=== PATIENT | male | born 1985 | race Caucasian/White ===

== ENCOUNTER 2020-05-09 15:36 | Outpatient (REF) | payer MEDICARE, MEDICAID, SELFPAY ==
--- NOTE | 2020-05-09 15:46 | US_ITS ---
EXAMINATION: US VENOUS ULTRASOUND WITH DOPPLER LOWER EXTREMITY, LEFT CLINICAL INFORMATION: Pain left leg. COMPARISON: None TECHNIQUE: Ultrasound of the deep veins is performed from the hip to the calf with compression sonography and color and pulse Doppler assessment. Spectral analysis with color-flow imaging is performed. FINDINGS: There is normal venous compression and respiratory variation and augmented flow. The visualized common femoral vein, superficial femoral vein, profunda femoral vein, popliteal vein, and the trifurcation region shows no evidence of deep venous thrombosis. There is no significant popliteal fossa cyst. If the patient's symptoms persist, followup ultrasound in 5 days 7 days might be of value to exclude proximal propagation from a non-visualized calf vein. US/US venous duplex LE LT IMPRESSION: No DVT demonstrated in the left lower extremity.
== END 2020-05-09 15:37 | disposition home or self-care (01) ==
LOC: HO.HMGCX 15:36
PROVIDERS: PCP Internal Medicine; Visit Provider Nurse Practitioner Family
DX: M79.605 Pain in left leg (principal)
CPT/HCPCS: 93971

== ENCOUNTER 2021-10-03 10:10 | Outpatient (REF) | payer MEDICARE, MEDICAID, SELFPAY ==
[2021-10-03 11:33] LABS: MANUAL DIFF FLAG NO
[2021-10-03 11:45] LABS: Basophils Percent Auto 0.1 % (0-2); Eosinophils Absolute Auto 0.2 X10*3/uL (0.0-0.4); Eosinophils Percent Auto 2.4 % (0-4); Hematocrit 42.1 % (42.0-52.0); Hemoglobin 13.8 g/dl (14.0-18.0); Imm Gran Abs Auto 0.03 X10*3/uL (0.00-0.03); Imm Gran Pct Auto 0.4 % (0.0-0.4); Lymphocytes Percent Auto 29.6 % (20-40); Mean Corpuscular HGB Conc 32.8 g/dl (31.0-36.0); Mean Corpuscular Hemoglobin 28.6 pg (27.0-33.0); Mean Corpuscular Volume 87.3 fL (80.0-98.0); Mean Platelet Volume 11.3 fL (9.4-12.4); Monocytes Absolute Auto 0.4 X10*3/uL (0.1-1.2); Monocytes Percent Auto 6.3 % (2-11); Neutrophils Absolute Auto 4.1 x10*3/uL (2.0-8.3); Neutrophils Percent Auto 61.2 % (45-73); Platelet Count 236 X10*3/uL (160-400); Red Blood Count 4.82 X10*6/uL (4.60-5.80); White Blood Count 6.8 X10*3/uL (4.8-10.8)
[2021-10-03 12:10] LABS: Alanine Aminotransferase 34 U/L (0-40); Albumin Level 3.9 g/dL (3.5-5.0); Alkaline Phosphatase 64 U/L (39-117); Anion Gap 12 (12-20); Aspartate Amino Transferase 20 U/L (5-37); Bilirubin Total 0.8 mg/dL (0.0-1.0); Blood Urea Nitrogen 12 mg/dL (9-16); Calcium 9.3 mg/dL (8.4-10.2); Carbon Dioxide 27 mmol/L (22-29); Chloride 103 mmol/L (96-108); Cholesterol 241 mg/dL; Estimated Glomerular Filt Rate > 60; Glucose Random 101 mg/dL (60-115); HDL Cholesterol 34 mg/dL; LDL Cholesterol Calculated 176 mg/dl; Potassium 4.2 mmol/L (3.3-5.1); Sodium 138 mmol/L (135-145); Triglycerides 157 mg/dL
[2021-10-03 12:32] LABS: Free T4 (Free Thyroxine) 0.89 ng/dL (0.71-1.85); Thyroid Stimulating Hormone 2.78 uIU/mL (0.32-4.0)
[2021-10-03 15:29] LABS: Folate > 20.0 ng/mL (> or = 4.0)
[2021-10-03 16:07] LABS: Vitamin B12 272 pg/mL (200-900)
== END 2021-10-03 10:11 | disposition home or self-care (01) ==
LOC: HO.HMGCLDS 10:10
PROVIDERS: PCP Internal Medicine; Visit Provider Internal Medicine
DX: R03.0 Elevated blood-pressure reading, without diagnosis of hypertension (principal); E78.00 Pure hypercholesterolemia, unspecified
CPT/HCPCS: 36415; 80053; 80061; 82607; 82746; 84439; 84443; 85025

== ENCOUNTER 2023-08-13 13:05 | Outpatient (AMB) | payer MEDICARE, MEDICAID, SELFPAY ==
[2023-08-13 13:06] VITALS: BP 112/64; PULSE 67; O2SAT 98; BMI 52.6
--- NOTE | 2023-08-13 13:06 | MHC.PC.OV ---
Vital Signs 08/13/23 13:06 Height 6 ft Weight 388 lb BMI 52.6 BP 112/64 Blood Pressure Location Lt brachial Position Sitting Pulse 67 Pulse Source Pulse Oximeter Temp Source Skin Pulse Oximetry (%) 98 Oxygen Delivery Method Room Air Intake Visit Reasons: Annual Exam Intake Note: Patient is here today for a physical. Glass Vial Bending Conveyor Feeder Required: No Allergies No Known Allergies Allergy (Verified 08/13/23 13:07) Tobacco use date assessed: 08/13/23 Dental Screening Dental Screen Date: 08/13/23 Did you have a dental visit in the last 12 months?: Yes Did you have a dental problem in the last 6 months where you did not have access to dental care?: No Was dental information given to patient?: Patient has dentist HPI Annual Exam HPI Details 37-year-old morbidly obese male with impaired glucose tolerance hypercholesterolemia and autism coming in for physical exam. Last seen in July 2022. [facility] Medical History (Updated 08/13/23 @ 13:29 by Alvarez Mena MD) Obesity Hypercholesterolemia Medicare annual wellness visit, initial Ulcerative proctitis Peptic ulcer disease Allergic rhinitis Constipation Vitamin D deficiency Autism Surgical History No pertinent past surgical history Family History (Updated 08/07/22 @ 12:37 by Alvarez Mena MD) Father Medical history unknown Mother No problems noted. Maternal Grandmother No problems noted. Maternal Grandfather Bone cancer Lung cancer Social History Housing: Other Housing Other:: assisted Alcohol intake: never Patient Tobacco Use Status: Never used Tobacco e-Cigarette/Vaping Use: Never Used service: No Current occupational status: disabled Cognitive needs: Yes Hearing needs: No Vision needs: No Questionnaire PHQ-9 Over the last 2 weeks, how often have you been bothered by any of the following problems? 1. Little interest or pleasure in doing things: not at all 2. Feeling down, depressed, or hopeless: not at all 3. Trouble falling or staying asleep, or sleeping too much: not at all 4. Feeling tired or having little energy: not at all 5. Poor appetite or overeating: not at all 6. Feeling bad about yourself - or that you are a failure or have let yourself or your family down: not at all 7. Trouble concentrating on things, such as reading the newspaper or watching television: not at all 8. Moving or speaking so slowly that other people could have noticed. Or the opposite - being so fidgety or restless that you have been moving around a lot more than usual: not at all 9. Thoughts that you would be better off or of hurting yourself in some way: not at all Total score: 0 Depression Screening Interpretation: Negative Depression Screening Done: Yes 05122 - PHQ-9 Billing: Yes Source: Developed by Drs. Bryant Garcia, Wendy Bush, Jeff Edge and colleagues, with an educational juaquin from [employer]. Thrive Questionnaire Date Thrive assessed: 08/07/22 I am a: Patient What is your living situation today?: I have a steady place to live Within the past 12 months, did the food you bought not last and you didn't have the money to get more?: Never true Within the past 12 months, did you worry whether your food would run out before you got money to buy more?: Never true Do you have trouble paying for medicines?: No Do you have trouble getting transportation to medical appointments?: No Do you have trouble paying your heating and electricity bill?: No Do you have trouble taking care of your child, family member or friend?: No Do you have trouble with day-to-day activities such as bathing, preparing meals, shopping, managing finances, etc.?: No Are you currently unemployed and looking for a job?: No Are you interested in more education?: No Please select the resources that you would like help with: None Currently or been in a relationship where the following occur: no concerns reported THRIVE Score: 0 AUDIT C Alcohol Use Questionnaire (AUDIT-C) 1. How often do you have a drink containing alcohol?: Never 3. How often do you have six or more drinks on one occasion?: Never Total Score: 0 YUNI-7 AMB Questionnaire YUNI-7 Date YUNI - 7 assessed: 08/13/23 Feeling nervous, anxious, or on edge: 0 = Not at all Not being able to stop or control worryin = Not at all Worrying too much about different things: 0 = Not at all Trouble relaxin = Not at all Being so restless that it is hard to sit still: 0 = Not at all Becoming easily annoyed or irritable: 0 = Not at all Feeling afraid as if something awful might happen: 0 = Not at all Total YUNI-7 score (0-4 normal; 5-9 mild; 10-14 moderate; 15-21 severe): 0 Source: Developed by Drs. Bryant Garcia, Wendy Bush, Jeff Edge and colleagues, with an educational juaquin from [employer]. Review of Systems Const Denies poor appetite and Denies weakness Eyes Denies no additional complaints ENT Reports Normal hearing present, Denies dizziness, Denies nasal congestion, Denies tinnitus and Denies sore throat Card Denies chest pain, Denies syncope, Denies rapid heart rate and Denies dyspnea Resp Denies cough and Denies dyspnea GI Denies change in stool character, Reports constipation, Denies diarrhea, Denies nausea and Denies vomiting Denies dysuria and Denies urinary frequency Neuro Reports Normal hearing present, Denies confusion, Denies dizziness, Denies syncope and Denies weakness Psych Denies confusion Physical exam (Primary Care) Vital Signs: Last Vital Signs Pulse 67 08/13/23 13:06 BP 112/64 08/13/23 13:06 Pulse Ox 98 08/13/23 13:06 Oxygen Delivery Method Room Air 08/13/23 13:06 BMI result Body Mass Index 52.6 Tobacco/Smoking Status: Tobacco use Status Tobacco use date assessed 08/13/23 08/13/23 13:08 Patient Tobacco Use Status Never used Tobacco 08/13/23 13:08 e-Cigarette/Vaping Use Never Used 08/13/23 13:08 PHQ-9: PHQ-9 Score PHQ-9: Total score 0 08/13/23 13:30 Depression Screening Interpretation: Negative Thrive Assessment: Date of Thrive Assessment Date Thrive assessed 08/07/22 08/13/23 13:08 Currently or been in a relationship where the following occur: no concerns reported Const General: No confusion Orientation/consciousness: No confusion HENMT Head: Yes normocephalic Ears: external ears normal and TM's normal bilaterally Face and sinus: Yes normal facial exam Mouth: moist mucous membranes Throat: Yes tonsils normal Eyes Conjunctivae: conjunctivae normal Pupils: Equal, round and reactive pupils present and Pupil accommodation reflex normal Direct Ophthalmoscopy: normal light reflex Neck Neck: No lymphadenopathy Thyroid: Thyroid normal Chest Chest palpation & inspection: normal inspection of the chest Resp Effort & Inspection: normal respiratory effort and no audible wheezes Auscultation: clear to auscultation bilaterally, no crackles, no wheezes and lung sounds not diminished Cardio Rate: regular rate Rhythm: regular rhythm Peripheral pulses: radial pulses present and dorsalis pedis present GI Palpation (GI): no masses Auscultation: normal bowel sounds and normoactive bowel sounds Rectal Exam - Male: Yes deferred Skin General skin exam: no rashes or lesions noted Rashes: no rashes Neuro General: No confusion Cranial nerves: Yes Equal, round and reactive pupils present and Yes Normal hearing present Cognition (Neuro): normal cognition Gait exam (Neuro): Normal gait present Motor exam (neuro): 5/5 motor strength present throughout Deep tendon reflexes (DTR's): Right brachioradialis reflex intensity grade: 2+, Left brachioradialis reflex intensity grade: 2+, Right patellar reflex intensity grade: 2+ and Left patellar reflex intensity grade: 2+ Extrem General: No edema Assessment and Plan Assessment & Plan (1) Annual physical exam: Code(s): Z00.00 - Encounter for general adult medical examination without abnormal findings (2) Morbid obesity: Code(s): E66.01 - Morbid (severe) obesity due to excess calories Plan: Diet and exercise, congratulations! (3) Impaired glucose tolerance: Code(s): R73.02 - Impaired glucose tolerance (oral) Plan: Decrease the amount of carbohydrate intake, pasta, bread, rice and potatoes are all sugar and that is aside from all the sweet stuff, remember that fruits are good but they are Sweet also. (4) Hypercholesterolemia: Code(s): E78.00 - Pure hypercholesterolemia, unspecified Plan: Avoid fried foods, chicken skin, eggs, butter margarine, pastries and meat. Be it pork or beef they have a lot of cholesterol (5) Autism: Code(s): F84.0 - Autistic disorder Plan: Continue with present medication. Orders: Orders Hemoglobin A1c Today R73.02 - Impaired glucose tolerance (oral) Vitamin B12 and Folate Today R73.02 - Impaired glucose tolerance (oral) Ferritin Today D64.9 - Anemia, unspecified Reticulocyte Count Today D64.9 - Anemia, unspecified Complete Blood Count Auto Diff Today R73.02 - Impaired glucose tolerance (oral) Comprehensive Met. Panel Today R73.02 - Impaired glucose tolerance (oral) Free T4 (Free Thyroxine) Today R73.02 - Impaired glucose tolerance (oral) Thyroid Stimulating Hormone Today R73.02 - Impaired glucose tolerance (oral) Lipid Panel Today E78.00 - Pure hypercholesterolemia, unspecified, R73.02 - Impaired glucose tolerance (oral) IRON PROFILE Today D64.9 - Anemia, unspecified Medications: Changed From loratadine Take daily in morning 90 days 90 tabs 3RF allergy symptoms To loratadine 10 mg orally Take daily in morning PRN; 90 tabs 3RF allergy symptoms 90 days Coding Level of Care Code Est Pt Prev Care [id number]([id number]) Diagnoses Annual physical exam Z00.00 Morbid obesity E66.01 Impaired glucose tolerance R73.02 Hypercholesterolemia E78.00 Autism F84.0
== END 2023-08-13 13:59 | disposition home or self-care (01) ==
PROVIDERS: Visit Provider Internal Medicine
DX: Z00.00 Encounter for general adult medical examination without abnormal findings (principal); E66.01 Morbid (severe) obesity due to excess calories; Z68.43 Body mass index [BMI] 50.0-59.9, adult; R73.02 Impaired glucose tolerance (oral); E78.00 Pure hypercholesterolemia, unspecified; F84.0 Autistic disorder
CPT/HCPCS: 99395

== ENCOUNTER 2023-08-23 11:01 | Outpatient (REF) | payer MEDICARE, MEDICAID, SELFPAY ==
[2023-08-23 13:23] LABS: MANUAL DIFF FLAG NO
[2023-08-23 13:26] LABS: Basophils Percent Auto 0.3 % (0-2); Eosinophils Absolute Auto 0.2 X10*3/uL (0.0-0.4); Eosinophils Percent Auto 2.9 % (0-4); Hematocrit 42.4 % (42.0-52.0); Hemoglobin 14.5 g/dl (14.0-18.0); Imm Gran Abs Auto 0.02 X10*3/uL (0.00-0.03); Imm Gran Pct Auto 0.3 % (0.0-0.4); Lymphocytes Percent Auto 31.1 % (20-40); Mean Corpuscular HGB Conc 34.2 g/dl (31.0-36.0); Mean Corpuscular Hemoglobin 29.3 pg (27.0-33.0); Mean Corpuscular Volume 85.7 fL (80.0-98.0); Mean Platelet Volume 11.1 fL (9.4-12.4); Monocytes Absolute Auto 0.5 X10*3/uL (0.1-1.2); Monocytes Percent Auto 7.4 % (2-11); Neutrophils Absolute Auto 3.7 x10*3/uL (2.0-8.3); Platelet Count 237 X10*3/uL (160-400); Red Blood Count 4.95 X10*6/uL (4.60-5.80); Red Cell Distribution Width 12.1 % (11.0-16.0); Retic HGB Equivalent 33.3 pg (30.0-35.0); Reticulocyte Percent 1.9 % (0.5-1.8); Reticulocytes Absolute 0.092 X10*6/uL (0.026-0.095); White Blood Count 6.5 X10*3/uL (4.8-10.8)
[2023-08-23 13:37] LABS: Estimated Average Glucose 108 mg/dL; Hemoglobin A1c % 5.4 % (<6.0)
[2023-08-23 13:46] LABS: Alanine Aminotransferase 28 U/L (0-40); Albumin Level 3.9 g/dL (3.5-5.0); Alkaline Phosphatase 66 U/L (39-117); Anion Gap 10 (12-20); Aspartate Amino Transferase 22 U/L (5-37); Bilirubin Total 0.7 mg/dL (0.0-1.0); Blood Urea Nitrogen 12 mg/dL (9-16); Calcium 9.1 mg/dL (8.4-10.2); Carbon Dioxide 28 mmol/L (22-29); Chloride 104 mmol/L (96-108); Cholesterol 240 mg/dL (<200); Estimated Glomerular Filt Rate > 60; Glucose Random 91 mg/dL (60-115); HDL Cholesterol 38 mg/dL (>40); Iron 64 mcg/dL (45-160); LDL Cholesterol Calculated 173 mg/dL (<100); Percent Iron Saturation 27 % (15-50); Potassium 4.1 mmol/L (3.3-5.1); Sodium 138 mmol/L (135-145); Total Iron Binding Capacity 233 mcg/dL (228-428); Total Protein 7.5 g/dL (6.5-8.0); Triglycerides 146 mg/dL (<150); Unsaturated Iron Binding 169 ug/dL
[2023-08-23 14:01] LABS: Ferritin 150 ng/mL (20-250); Free T4 (Free Thyroxine) 0.99 ng/dL (0.71-1.85); Thyroid Stimulating Hormone 2.45 uIU/mL (0.32-4.0)
[2023-08-23 14:15] LABS: Folate 15.2 ng/mL (> or = 4.0); Vitamin B12 370 pg/mL (200-900)
== END 2023-08-23 11:02 | disposition home or self-care (01) ==
LOC: HO.HMGCLDS 11:01
PROVIDERS: PCP Internal Medicine; Visit Provider Internal Medicine
DX: R73.02 Impaired glucose tolerance (oral) (principal); D64.9 Anemia, unspecified; E78.00 Pure hypercholesterolemia, unspecified
CPT/HCPCS: 36415; 80053; 80061; 82607; 82728; 82746; 83036; 83540; 84439; 84443; 85025; 85045

== ENCOUNTER 2024-08-18 12:54 | Outpatient (AMB) | payer MEDICARE, MEDICAID, SELFPAY ==
--- NOTE | 2024-08-18 13:01 | MHC.PC.OV ---
Vital Signs 08/18/24 13:02 Height 6 ft Weight 380 lb BMI 51.5 BP 124/68 Blood Pressure Location Lt brachial Position Sitting Pulse 67 Pulse Source Pulse Oximeter Temp 97.1 F Temp Source Temporal Artery Scan Pulse Oximetry (%) 97 Oxygen Delivery Method Room Air Intake Visit Reasons: annual physical Intake Note: Patient is here today for a physical. Risk Adjustment Specialist Required: No Diploma Maker: Present Accompanied by: Mother Allergies No Known Allergies Allergy (Verified 08/18/24 13:01) Medication List - Last Reconciled 08/18/24 by Alvarez Mena MD acetaminophen 650 mg (2 x 325 mg) PO Q4H PRN [Blood Pressure Cuff XL As directed] [blood pressure monitor with Blood Pressure Cuff XL As directed] cholecalciferol (vitamin D3) 25 mcg PO DAILY citalopram 40 mg PO DAILY clotrimazole 1% 1 appl topical BID 90 days dextromethorphan polistirex ER (Delsym 12 hour) 10 mL PO Q12H PRN docusate sodium 100 mg orally 08:00 and 17:00; 90 days flaxseed oil 1,000 mg PO DAILY 90 days hydrocortisone-acetic acid 1-2 % 4 drps otic (ears) QID 7 days hydroxyzine HCl 25 mg PO Q8H PRN 30 days ketoconazole 2% 1 appl topical BID 90 days ketoconazole 2% 1 appl topical 2XW Lactobacillus rhamnosus GG (Culturelle) 1 cap PO DAILY loratadine 10 mg PO DAILY 90 days lorazepam (Ativan) 0.5 mg PO BID PRN lorazepam (Ativan) 1 mg PO TID PRN miconazole nitrate 2% (Zeasorb AF) 1 appl topical BID multivitamin with folic acid 400 mcg (Daily-Rahul (with folic acid)) 1 tab PO QAM naproxen 500 mg PO Q12H PRN nystatin 1 appl topical TID 30 days omega 3-rih-wul-fish oil 300-1,000 mg 1 cap PO BEDTIME polyethylene glycol 3350 17 grams PO DAILY PRN 90 days propranolol 20 mg orally 08:00 and 17:00; 30 days psyllium husk 0.8 grams (2 x 0.4 gram) PO QAM quetiapine (Seroquel) 50 mg PO BEDTIME quetiapine (Seroquel) 100 mg PO BEDTIME quetiapine ER (Seroquel XR) 150 mg PO DAILY Tobacco use date assessed: 08/18/24 Dental Screening Dental Screen Date: 08/18/24 Did you have a dental visit in the last 12 months?: Yes Did you have a dental problem in the last 6 months where you did not have access to dental care?: No Was dental information given to patient?: Patient has dentist [facility] Medical History (Updated 08/18/24 @ 13:18 by Alvarez Mena MD) Anemia Obesity Hypercholesterolemia Medicare annual wellness visit, initial Ulcerative proctitis Peptic ulcer disease Allergic rhinitis Constipation Vitamin D deficiency Autism Surgical History No pertinent past surgical history Family History (Updated 08/18/24 @ 13:07 by SHOLA Daniel) Father Medical history unknown Mother No problems noted. Maternal Grandmother No problems noted. Maternal Grandfather Bone cancer Lung cancer Social History Housing: Other Housing Other:: [facility] Alcohol intake: never Patient Tobacco Use Status: Never used Tobacco e-Cigarette/Vaping Use: Never Used Second Hand Smoke Exposure: No service: No Current occupational status: disabled Cognitive needs: Yes Hearing needs: No Vision needs: No Questionnaire PHQ-9 Over the last 2 weeks, how often have you been bothered by any of the following problems? 1. Little interest or pleasure in doing things: not at all 2. Feeling down, depressed, or hopeless: not at all 3. Trouble falling or staying asleep, or sleeping too much: not at all 4. Feeling tired or having little energy: not at all 5. Poor appetite or overeating: not at all 6. Feeling bad about yourself - or that you are a failure or have let yourself or your family down: not at all 7. Trouble concentrating on things, such as reading the newspaper or watching television: not at all 8. Moving or speaking so slowly that other people could have noticed. Or the opposite - being so fidgety or restless that you have been moving around a lot more than usual: not at all 9. Thoughts that you would be better off or of hurting yourself in some way: not at all Total score: 0 Depression Screening Interpretation: Negative Depression Screening Done: Yes Source: Developed by Drs. Bryant Garcia, Wendy Bush, Jeff Edge and colleagues, with an educational juaquin from [employer]. Thrive Questionnaire Date Thrive assessed: 08/12/24 I am a: Parent/Caregiver What is your living situation today?: I have a steady place to live Within the past 12 months, did the food you bought not last and you didn't have the money to get more?: Never true Within the past 12 months, did you worry whether your food would run out before you got money to buy more?: Never true Do you have trouble paying for medicines?: No Do you have trouble getting transportation to medical appointments?: No Do you have trouble paying your heating and electricity bill?: No Do you have trouble taking care of your child, family member or friend?: No Do you have trouble with day-to-day activities such as bathing, preparing meals, shopping, managing finances, etc.?: No Are you currently unemployed and looking for a job?: No Are you interested in more education?: No Please select the resources that you would like help with: None Currently or been in a relationship where the following occur: No concerns reported THRIVE Score: 0 AUDIT C Alcohol Use Questionnaire (AUDIT-C) 1. How often do you have a drink containing alcohol?: Never Total Score: 0 YUNI-7 AMB Questionnaire YUNI-7 Date YUNI - 7 assessed: 08/18/24 Feeling nervous, anxious, or on edge: 0 = Not at all Not being able to stop or control worryin = Not at all Worrying too much about different things: 0 = Not at all Trouble relaxin = Not at all Being so restless that it is hard to sit still: 0 = Not at all Becoming easily annoyed or irritable: 0 = Not at all Feeling afraid as if something awful might happen: 0 = Not at all Total YUNI-7 score (0-4 normal; 5-9 mild; 10-14 moderate; 15-21 severe): 0 Source: Developed by Wendy Tate Kurt Kroenke and colleagues, with an educational juaquin from [employer]. Review of Systems Const Denies poor appetite and Denies weakness Eyes Denies no additional complaints ENT Reports Normal hearing present, Denies dizziness, Denies nasal congestion, Denies tinnitus and Denies sore throat Card Denies chest pain, Denies syncope, Denies rapid heart rate and Denies dyspnea Resp Denies cough and Denies dyspnea GI Denies change in stool character, Reports constipation, Denies diarrhea, Denies nausea and Denies vomiting Denies dysuria and Denies urinary frequency Neuro Reports Normal hearing present, Denies confusion, Denies dizziness, Denies syncope and Denies weakness Psych Denies confusion Physical exam (Primary Care) Vital Signs: Last Vital Signs Temp 97.1 F 08/18/24 13:02 Pulse 67 08/18/24 13:02 BP 124/68 08/18/24 13:02 Pulse Ox 97 08/18/24 13:02 Oxygen Delivery Method Room Air 08/18/24 13:02 BMI result Body Mass Index 51.5 Tobacco/Smoking Status: Tobacco use Status Tobacco use date assessed 08/18/24 08/18/24 13:08 Patient Tobacco Use Status Never used Tobacco 08/18/24 13:08 e-Cigarette/Vaping Use Never Used 08/18/24 13:08 PHQ-9: PHQ-9 Score PHQ-9: Total score 0 08/18/24 13:08 Depression Screening Interpretation: Negative Thrive Assessment: Date of Thrive Assessment Date Thrive assessed 08/12/24 08/18/24 13:08 Currently or been in a relationship where the following occur: No concerns reported Const General: No confusion Orientation/consciousness: No confusion HENMT Head: Yes normocephalic Ears: external ears normal and TM's normal bilaterally Face and sinus: Yes normal facial exam Mouth: moist mucous membranes Throat: Yes tonsils normal Eyes Conjunctivae: conjunctivae normal Pupils: Equal, round and reactive pupils present and Pupil accommodation reflex normal Direct Ophthalmoscopy: normal light reflex Neck Neck: No lymphadenopathy Thyroid: Thyroid normal Chest Chest palpation & inspection: normal inspection of the chest Resp Effort & Inspection: normal respiratory effort and no audible wheezes Auscultation: clear to auscultation bilaterally, no crackles, no wheezes and lung sounds not diminished Cardio Rate: regular rate Rhythm: regular rhythm Peripheral pulses: radial pulses present and dorsalis pedis present GI Palpation (GI): no masses Auscultation: normal bowel sounds and normoactive bowel sounds Rectal Exam - Male: Yes deferred Skin General skin exam: no rashes or lesions noted Rashes: no rashes Neuro General: No confusion Cranial nerves: Yes Equal, round and reactive pupils present and Yes Normal hearing present Cognition (Neuro): normal cognition Gait exam (Neuro): Normal gait present Motor exam (neuro): 5/5 motor strength present throughout Deep tendon reflexes (DTR's): Right brachioradialis reflex intensity grade: 2+, Left brachioradialis reflex intensity grade: 2+, Right patellar reflex intensity grade: 2+ and Left patellar reflex intensity grade: 2+ Extrem General: No edema Coding Level of Care Code Est Pt Prev Care 40-64y(61594) Diagnoses Annual physical exam Z00.00 Morbid obesity E66.01 Hypercholesterolemia E78.00 Autism F84.0 Assessment & Plan Assessment & Plan (1) Annual physical exam: Code(s): Z00.00 - Encounter for general adult medical examination without abnormal findings Category: Medical Plan: Control the cholesterol, weight, blood pressure, diabetes (2) Morbid obesity: Code(s): E66.01 - Morbid (severe) obesity due to excess calories Category: Medical Plan: Continue with diet and exercise (3) Hypercholesterolemia: Code(s): E78.00 - Pure hypercholesterolemia, unspecified Category: Medical Plan: Avoid fried foods, chicken skin, eggs, butter margarine, pastries and meat. Be it pork or beef they have a lot of cholesterol LDL goal of less than 130 and triglyceride of less than 150. Request for blood work done (4) Autism: Code(s): F84.0 - Autistic disorder Category: Medical Plan: Supportive treatment Plan History of Present Illness The patient is a 38-year-old male presenting for a physical examination and management of obesity, autism, and hypercholesterolemia. Previously recorded lab tests in August 2023 showed normal blood count and metabolic function with an elevated LDL cholesterol level of 173 mg/dL. A therapeutic target of reducing LDL cholesterol to below 130 mg/dL and triglycerides to under 150 mg/dL was set. While dietary changes have been implemented successfully, consistent physical activity has been lacking since the onset of the COVID pandemic, leading to limited exercise routines. The patient does not report consistent musculoskeletal pain and has normal sleep apart from intermittent seasonal snoring. Health Maintenance - Continue diet and exercise for weight management - LDL cholesterol control plan aiming for <130 mg/dL - Triglyceride control goal of <150 mg/dL - Consider Tdap vaccination for tetanus, pertussis management Social History - Participates in a day program - Limited physical activity reported - Changes in physical exercise routine still needed post-COVID - Spends recreational time on computer and watching TV - Generally adheres to dietary adjustments but requires increased exercise engagement Review of Systems - Musculoskeletal: Denies consistent hip pain - Sleep: Reports snoring, no daytime somnolence Physical Exam General: Cooperative, healthy appearing, comfortable, no acute distress and well developed Orientation: Patient oriented x3 Limitations: No limitations Head: Normal to inspection Ears: Hearing grossly normal bilaterally Nose: Normal external nose present Face and sinus: Normal facial exam Eyes: Appearance normal, both eyes and all related structures Neck: Normal visual inspection and Yes full ROM Respiratory: Normal respiratory effort and able to speak in complete sentences. Clear to auscultation bilaterally Cardiovascular: Regular rate and rhythm. Normal S1 and S2 GI: Normal to inspection. Soft to palpation and nontender Skin: No rashes or lesions noted, but patches of dry skin noted, especially in spring and fall Neuro: Patient oriented x3 Extremities: Normal to inspection, but patient reports occasional hip pain due to prolonged sitting. No consistent pain noted. Results - Labs: Normal blood count, normal electrolytes, normal renal function, normal hemoglobin A1c, normal iron levels, normal liver function, normal vitamin B12, and folic acid levels; LDL cholesterol was elevated at 173 mg/dL. Plan The management plan includes continued emphasis on dietary adjustments along with an increase in regular physical activity to help manage the patient's chronic conditions effectively. The LDL cholesterol target has been set below 130 mg/dL, and for triglycerides, below 150 mg/dL. Physical activities such as swimming and walking are highly recommended, and a discussion about the Tdap vaccine took place as part of health maintenance. The patient's sporadic hip discomfort relates to inactivity, and no further diagnostic imaging is required currently unless symptoms persist. Patient was informed and verbally consented to the use of an ambient scribe for clinic note documentation during this visit. Discussion Notes I discussed with the patient the importance of adhering to dietary modifications and increasing physical activity to better manage his health conditions, emphasizing the need for regular exercise such as swimming or walking. We reviewed the lab results, which showed elevated LDL cholesterol levels, and set a target to reduce these levels through lifestyle modifications. The patient was informed about the potential benefits of receiving a Tdap vaccination for additional health maintenance. We addressed that no imaging is currently needed for hip discomfort, which most likely results from reduced activity levels. I informed the patient that consistency with these changes is crucial to their health improvement, and no adverse events or allergies to medications were reported during the discussion. Patient Instructions - Continue adhering to dietary changes - Focus on increasing physical activity, such as walking and swimming - Aim for cholesterol levels: LDL <130 mg/dL and triglycerides <150 mg/dL - Consider receiving a Tdap vaccine - Monitor snoring and sleep quality; seek care if daytime sleepiness occurs - Follow up as scheduled and reach out if symptoms such as persistent hip pain worsen Orders: Orders Comprehensive Met. Panel Today E78.00 - Pure hypercholesterolemia, unspecified Free T4 (Free Thyroxine) Today E78.00 - Pure hypercholesterolemia, unspecified Lipid Panel Today E78.00 - Pure hypercholesterolemia, unspecified Complete Blood Count Auto Diff Today E78.00 - Pure hypercholesterolemia, unspecified Thyroid Stimulating Hormone Today E78.00 - Pure hypercholesterolemia, unspecified Vitamin B12 and Folate Today E78.00 - Pure hypercholesterolemia, unspecified Hemoglobin A1c Today E78.00 - Pure hypercholesterolemia, unspecified
[2024-08-18 13:02] VITALS: BP 124/68; PULSE 67; TEMP 36.2; O2SAT 97; BMI 51.5
== END 2024-08-18 13:50 | disposition home or self-care (01) ==
LOC: HO.HMCH 12:55
PROVIDERS: PCP Internal Medicine; Visit Provider Internal Medicine
DX: Z00.00 Encounter for general adult medical examination without abnormal findings (principal); E66.01 Morbid (severe) obesity due to excess calories; Z68.43 Body mass index [BMI] 50.0-59.9, adult; E78.00 Pure hypercholesterolemia, unspecified; F84.0 Autistic disorder

== ENCOUNTER → 2024-08-18 12:54 | Outpatient (BNVA) | payer MEDICARE, MEDICAID, SELFPAY | PROVIDERS: PCP Internal Medicine; Visit Provider Internal Medicine | DX: Z00.00 Encounter for general adult medical examination without abnormal findings (principal); E66.01 Morbid (severe) obesity due to excess calories; E78.00 Pure hypercholesterolemia, unspecified; F84.0 Autistic disorder | CPT/HCPCS: 99396 ==

== ENCOUNTER 2025-02-16 09:19 | Outpatient (REF) | payer MEDICARE, MEDICAID, SELFPAY ==
[2025-02-16 10:03] LABS: MANUAL DIFF FLAG NO
[2025-02-16 10:11] LABS: Hematocrit 43.7 % (42.0-52.0); Hemoglobin 14.4 g/dl (14.0-18.0); Imm Gran Abs Auto 0.04 X10*3/uL (0.00-0.03); Imm Gran Pct Auto 0.6 % (0.0-0.4); Lymphocytes Absolute Auto 2.0 X10*3/uL (1.2-4.9); Mean Corpuscular HGB Conc 33.0 g/dl (31.0-36.0); Mean Corpuscular Hemoglobin 28.6 pg (27.0-33.0); Mean Corpuscular Volume 86.7 fL (80.0-98.0); NRBC Abs Auto 0.000 X10*3/uL (0.0-0.012); NRBC Pct Auto 0.0 /100WBC (0.0-0.2); Platelet Count 240 X10*3/uL (160-400); Red Blood Count 5.04 X10*6/uL (4.60-5.80); White Blood Count 6.9 X10*3/uL (4.8-10.8)
[2025-02-16 11:16] LABS: Alanine Aminotransferase 25 U/L (0-40); Albumin Level 4.1 g/dL (3.5-5.0); Alkaline Phosphatase 66 U/L (39-117); Anion Gap 10 (12-20); Aspartate Amino Transferase 17 U/L (5-37); Blood Urea Nitrogen 15 mg/dL (9-16); Calcium 9.0 mg/dL (8.4-10.2); Carbon Dioxide 28 mmol/L (22-29); Chloride 106 mmol/L (96-108); Cholesterol 226 mg/dL (<200); Estimated Glomerular Filt Rate > 60; HDL Cholesterol 34 mg/dL (>40); Potassium 4.0 mmol/L (3.3-5.1); Sodium 140 mmol/L (135-145); Total Protein 7.3 g/dL (6.5-8.0); Triglycerides 167 mg/dL (<150)
[2025-02-16 11:31] LABS: Free T4 (Free Thyroxine) 0.93 ng/dL (0.71-1.85); Thyroid Stimulating Hormone 3.29 uIU/mL (0.32-4.0)
[2025-02-16 11:45] LABS: Folate 14.3 ng/mL (> or = 4.0); Vitamin B12 339 pg/mL (200-900)
== END 2025-02-16 09:20 | disposition home or self-care (01) ==
LOC: HO.HMGCLDS 09:19
PROVIDERS: PCP Internal Medicine; Visit Provider Internal Medicine
DX: Z13.1 Encounter for screening for diabetes mellitus (principal); E78.00 Pure hypercholesterolemia, unspecified
CPT/HCPCS: 36415; 80053; 80061; 82607; 82746; 83036; 84439; 84443; 85025